=== PATIENT | female | born 1955 | race Caucasian/White ===

== ENCOUNTER 2019-08-17 15:30 | Outpatient (CLI) | payer MEDICARE, MEDICAID, SELFPAY ==
--- NOTE | 2019-08-17 16:07 | XR_ITS ---
WS: [id number] KNEE RIGHT TECHNIQUE: 4 views of the right knee CLINICAL INFORMATION: KNEE PAIN COMPARISON: None. FINDINGS: No evidence of acute fracture dislocation. Mild degenerative arthritis with hypertrophic changes na g the joint line. Hypertrophic patella. Soft tissue edema. Tiny joint effusion. XR/XR knee RT 4V [id number] IMPRESSION: 1. Mild degenerative arthritis. No acute fractures. 2. Soft tissue edema. Tiny suprapatellar effusion. 3. Hypertrophic patella.
== END 2019-08-17 15:31 | disposition home or self-care (01) ==
LOC: RADOUTREAD 15:39 → RADWPI 08-22 07:25
PROVIDERS: Family Provider Family Medicine; PCP Family Medicine; Visit Provider Nurse Practitioner Family
DX: M25.561 Pain in right knee (principal)
CPT/HCPCS: 73564

== ENCOUNTER → 2019-08-31 13:26 | Outpatient (BNVA) | payer MEDICARE, MEDICAID, SELFPAY | PROVIDERS: Family Provider Family Medicine; PCP Family Medicine; Visit Provider Dermatology | DX: D48.9 Neoplasm of uncertain behavior, unspecified (principal); L82.1 Other seborrheic keratosis; R58 Hemorrhage, not elsewhere classified; L85.3 Xerosis cutis; Z12.83 Encounter for screening for malignant neoplasm of skin | CPT/HCPCS: 11305; 11310; 88305; 99203 ==

== ENCOUNTER 2019-12-27 16:15 | Inpatient (IN) | payer MEDICARE, MEDICAID, SELFPAY ==
[2019-12-27 16:29] VITALS: BP 76/57; PULSE 97; RESP 18; TEMP 36.5; O2SAT 98; BMI 29.9
--- NOTE | 2019-12-27 16:46 | PC.NURSE ---
EKG done at 1645 and shown to ER doctor
--- NOTE | 2019-12-27 17:19 | W.ED.NAVMDI ---
HPI - Nausea/Vomiting/Diarrhea General: Chief complaint: Nausea/Vomiting/Diarrhea Stated complaint: LOW BP Time Seen by Provider: 12/27/19 17:08 History of Present Illness: HPI Narrative: This patient is a 64-year-old female who presents today with abdominal pain for about 2 weeks. She said every time she eats she gets pain in her lower abdomen. She said it happens consistently with each meal. She had not had any fever, vomiting or diarrhea until today. She has no fever today but developed some vomiting and loose stools. She went to her doctor, where she had already scheduled an appointment for the abdominal pain and was told that her blood pressure was too low. She was sent to the ER with concerns for dehydration. She has had a hysterectomy about 8 years ago and her gallbladder removed about 2 years ago. She has lupus which is only caused her arthritis types of problems. She said her sister and her niece both from lupus complications however. She has not had cough or shortness of breath. No chest pain. MD elicited complaint: nausea, vomiting, diarrhea and abdominal pain Pertinent past history: other (She has been losing weight but has been doing so intentionally since July.) Onset (ago): week(s) (2) Associated nausea: Yes Associated abdominal pain: Yes Location of pain: RLQ and LLQ Severity: moderate Quality: cramping Exacerbating factors: eating Context: history of abdominal surgery Associated symtoms: Reports nausea; Denies change in vision, chest pain, fatigue, headache(s) or malaise Review of Systems General: Reports: 10 or more systems reviewed and unremarkable except in HPI and below Const: Denies: fever(s), chills, fatigue or malaise Eyes: Denies: change in vision ENMT: Denies: odynophagia Card: Denies: chest pain or swelling of feet/ankles Resp: Denies: dyspnea, productive cough or non-productive cough GI: Reports: abdominal pain, nausea and vomiting : Denies: flank pain or difficulty voiding Musc: Denies: neck pain or back pain Skin/Breast: Denies: rash Neuro: Denies: headache(s), numbness in extremities or weakness in extremities Cornelius/Lymph: Denies: easy bruising or easy bleeding PFSH ED PFSH: Family History Other CAD (coronary artery disease) Diabetes Hypertension Stroke Denies family history of Cancer Social History Smoking and tobacco status: never smoked Alcohol intake: current Alcohol intake frequency: holidays/special occasions only History of recent travel: No Physical Exam Const: COMMON NORMALS: no acute distress, patient oriented x3, no limitations and alert GENERAL APPEARANCE: cooperative and comfortable HENMT: HEAD & SCALP: normal to inspection FACE & SINUS: normal facial exam Eye: GENERAL EYE: appearance normal, both eyes and all related structures Neck/C-Spine: COMMON NORMALS: supple, no meningeal signs and no JVD Chest: COMMONS NORMALS: normal inspection of the chest Resp: COMMON NORMALS: normal respiratory effort, No use of accessory muscles and clear to auscultation bilaterally AUSCULTATION: clear to auscultation bilaterally Cardio: COMMON NORMALS: no JVD, regular rate, regular rhythm and No murmurs present (Cardio) RATE: regular rate RHYTHM: regular rhythm GI: COMMON NORMALS: Normal to inspection, nondistended, normoactive bowel sounds present and Soft to palpation INSPECTION: Yes normal to inspection AUSCULTATION: Yes normoactive bowel sounds PALPATION: Yes Soft to palpation and Yes Tenderness to palpation present (GI) (Diffuse) Back/Pelvis: COMMON NORMALS: thoracic and lumbar spine normal to inspection Extremity: COMMON NORMALS: normal to inspection Neuro: COMMON NORMALS: patient oriented x3, moves all extremities, no focal motor deficits and no sensory deficits noted SENSORIUM/ORIENTATION: Yes alert MENINGEAL SIGNS: Yes no meningeal signs Psych: COMMON NORMALS: mental status grossly normal, cooperative and normal affect Skin: COMMON NORMALS: no rashes or lesions noted and turgor normal GENERAL SKIN EXAM: no rashes or lesions noted and turgor normal Course ED course: Patient presents with lower abdominal pain that is been there for about 2 weeks. It goes away in between meals but after meals she has significant symptoms. She had one episode of vomiting a little bit of diarrhea today but otherwise has been able to eat and drink normally. She came in with a significantly low blood pressure. She was found to have renal failure which appears to be chronic. She initially had told me that she did not have any problems from her lupus including no kidney problems but when I spoke with her further she said she had been told that she had some kidney issues and needed to follow-up with a marketing information manager. She was told a few months ago to stop taking any ibuprofen or medicines like that as they were hard on her kidneys. She does not know what any of the numbers were at that time. I cannot find any prior kidney function in our system here. Given her low blood pressure she will be admitted to hospitalist for hydration and further evaluation of her kidney function. CT was done due to her abdominal symptoms and showed some nonspecific colitis. Vital Signs: Vital signs: Vital Signs Temperature 97.9 F 12/28/19 03:54 Pulse Rate 81 12/28/19 03:54 Respiratory Rate 18 12/28/19 03:54 Blood Pressure 102/56 12/28/19 04:31 Pulse Oximetry 98 12/28/19 03:54 MDM - Nausea/Vomiting/Diarrhea Lab Data: Labs: Lab Results 12/27/19 12/27/19 12/27/19 Range/Units 16:43 17:16 18:02 WBC 7.6 (4.0-10.0) 10^3/ uL RBC 3.84 L (4.1-5.3) 10^6/u L Hgb 11.4 L (11.5-15.3) g/dL Hct 33.8 L (37.0-47.0) % MCV 88.0 (81-99) fL MCH 29.7 (28.0-34.0) pg MCHC 33.7 (30.0-36.0) g/dL RDW 12.2 (12.1-15.1) % Plt Count 276 (130-400) 10^3/c mm MPV 9.8 (7.4-10.4) fL Neut % (Auto) 77.7 % Lymph % (Auto) 12.4 % [place] % (Auto) 7.5 % Eos % (Auto) 1.6 % Baso % (Auto) 0.4 % Neut # (Auto) 5.92 (1.8-7.7) 10^3/u L Lymph # (Auto) 0.9 (0.8-4.8) 10^3/u L [place] # (Auto) 0.6 (0.2-0.9) 10^3/u L Eos # (Auto) 0.1 (0.0-0.8) 10^3/u L Baso # (Auto) 0.0 (0.0-0.1) 10^3/u L Nucleated RBC % (a uto) 0 % Nucleated RBCs # 0.0 /100WBC Sodium 135 L (136-145) mmol/L Potassium 4.4 (3.5-5.1) mmol/L Chloride 97 L (98-107) mmol/L Carbon Dioxide 24 (22-29) mmol/L Anion Gap 18.4 (5-19) BUN 48 H (8-23) mg/dL Creatinine 4.2 H (0.5-0.9) mg/dL GFR Calculation 10.7 L (90-130) mL/min Glucose 115 (65-115) mg/dL Calculated Osmolal ity 294 (285-295) mOsm/k g Calcium 9.7 (8.5-10.5) mg/dL Total Bilirubin 0.3 (0.15-1.2) mg/dL AST 39 H (0-32) U/L ALT 36 H (0-33) U/L Alkaline Phosphata se 87 (35-105) IU/L Total Protein 7.0 (6.6-8.7) g/dL Albumin 4.7 (3.5-5.2) g/dL Globulin 2.3 (1.3-4.6) g/dL Lipase 66 H (13-60) U/L Urine Color Yellow (Yellow) Urine Appearance Clear (CLEAR) Urine pH 5 (5-7) Ur Specific Gravit y 1.015 (1.005-1.030) Urine Protein Neg (Negative) Urine Glucose (UA) Norm (Normal) Urine Ketones Negative (Negative) Urine Blood Neg (Negative) Urine Nitrate Negative (Negative) Urine Bilirubin Neg (Negative) Urine Urobilinogen Norm (Negative) mg/dL Ur Leukocyte [place] ase Negative (Negative) U Random Total Pro tein mg/dL Ur Random Sodium mmol/L Urine Creatinine (28-217) mg/dL 12/27/19 Range/Units 18:02 WBC (4.0-10.0) 10^3/ uL RBC (4.1-5.3) 10^6/u L Hgb (11.5-15.3) g/dL Hct (37.0-47.0) % MCV (81-99) fL MCH (28.0-34.0) pg MCHC (30.0-36.0) g/dL RDW (12.1-15.1) % Plt Count (130-400) 10^3/c mm MPV (7.4-10.4) fL Neut % (Auto) % Lymph % (Auto) % [place] % (Auto) % Eos % (Auto) % Baso % (Auto) % Neut # (Auto) (1.8-7.7) 10^3/u L Lymph # (Auto) (0.8-4.8) 10^3/u L [place] # (Auto) (0.2-0.9) 10^3/u L Eos # (Auto) (0.0-0.8) 10^3/u L Baso # (Auto) (0.0-0.1) 10^3/u L Nucleated RBC % (a uto) % Nucleated RBCs # /100WBC Sodium (136-145) mmol/L Potassium (3.5-5.1) mmol/L Chloride (98-107) mmol/L Carbon Dioxide (22-29) mmol/L Anion Gap (5-19) BUN (8-23) mg/dL Creatinine (0.5-0.9) mg/dL GFR Calculation (90-130) mL/min Glucose (65-115) mg/dL Calculated Osmolal ity (285-295) mOsm/k g Calcium (8.5-10.5) mg/dL Total Bilirubin (0.15-1.2) mg/dL AST (0-32) U/L ALT (0-33) U/L Alkaline Phosphata se (35-105) IU/L Total Protein (6.6-8.7) g/dL Albumin (3.5-5.2) g/dL Globulin (1.3-4.6) g/dL Lipase (13-60) U/L Urine Color (Yellow) Urine Appearance (CLEAR) Urine pH (5-7) Ur Specific Gravit y (1.005-1.030) Urine Protein (Negative) Urine Glucose (UA) (Normal) Urine Ketones (Negative) Urine Blood (Negative) Urine Nitrate (Negative) Urine Bilirubin (Negative) Urine Urobilinogen (Negative) mg/dL Ur Leukocyte Oumou ase (Negative) U Random Total Pro tein 11 mg/dL Ur Random Sodium 40 mmol/L Urine Creatinine 71 (28-217) mg/dL Discharge Plan Discharge Admit Provider: Wyatt Cadet Discharge Date/Time: 12/27/19 20:58 Coding Level of Care Code ED Ice Cream Chef for Renag Fwd Exam Comprehensive
--- NOTE | 2019-12-27 17:20 | ECG_ITS ---
[facility] Test Date: 2019-12-27 Pat Name: Summer Sanchez Department: Room: Gender: Female Whipped Topping Mixer: : 1955 Requested By: Lidia Velarde Order Number: [id number] Belén MD: Emily Ramirez M.D. Measurements Intervals [place] Rate: 90 P: 43 WI: 174 QRS: 47 QRSD: 157 T: 83 QT: 414 QTc: 509 Interpretive Statements SINUS RHYTHM LEFT BUNDLE BRANCH BLOCK [120+ ms QRS DURATION, 80+ ms Q/S IN V1/V2, 85+ ms R IN I/aVL/V5/V6] Compared to ECG 07/23/2015 04:10:10 No significant changes Electronically Signed On 12-27-2019 18:56:30 SODA FLAKER by Emily Ramirez M.D. [email or web address] memorial hospitalRobotDough Softwareregency hospital [email or web address]/store/NU/[id number] f
[2019-12-27 17:29] LABS: Basophils % 0.4 %; Eosinophils # 0.1 10^3/uL (0.0-0.8); Eosinophils % 1.6 %; Hematocrit 33.8 % (37.0-47.0); Hemoglobin 11.4 g/dL (11.5-15.3); Lymphocytes # 0.9 10^3/uL (0.8-4.8); Lymphocytes % 12.4 %; Mean Corpuscular HGB Conc 33.7 g/dL (30.0-36.0); Mean Corpuscular Hemoglobin 29.7 pg (28.0-34.0); Mean Platelet Volume 9.8 fL (7.4-10.4); Monocytes # 0.6 10^3/uL (0.2-0.9); Monocytes % 7.5 %; Neutrophils # 5.92 10^3/uL (1.8-7.7); Neutrophils % 77.7 %; Nucleated Red Blood Cells % 0 %; Platelet Count 276 10^3/cmm (130-400); Red Blood Count 3.84 10^6/uL (4.1-5.3); Red Cell Distribution Width 12.2 % (12.1-15.1); White Blood Count 7.6 10^3/uL (4.0-10.0)
[2019-12-27 17:51] LABS: Alanine Aminotransferase 36 U/L (0-33); Albumin Level 4.7 g/dL (3.5-5.2); Alkaline Phosphatase 87 IU/L (35-105); Anion Gap 18.4 (5-19); Aspartate Amino Transferase 39 U/L (0-32); Blood Urea Nitrogen 48 mg/dL (8-23); Calcium 9.7 mg/dL (8.5-10.5); Carbon Dioxide 24 mmol/L (22-29); Chloride 97 mmol/L (98-107); Globulin 2.3 g/dL (1.3-4.6); Glomerular Filtration Rate 10.7 mL/min (90-130); Glucose 115 mg/dL (65-115); Lipase 66 U/L (13-60); Osmolality Calculated 294 mOsm/kg (285-295); Potassium 4.4 mmol/L (3.5-5.1); Sodium 135 mmol/L (136-145); Total Bilirubin 0.3 mg/dL (0.15-1.2)
[2019-12-27] MEDS: sodium chloride 0.9% 1,000 ML 999 ML IV (17:56)
[2019-12-27] MEDS: ondansetron 2 mg/ML SDV 2 mL 4 MG IVP (17:56)
--- NOTE | 2019-12-27 18:04 | CTR_ITS ---
PROCEDURE INFORMATION: Exam: CT Abdomen And Pelvis Without Contrast Exam date and time: 12/27/2019 6:34 PM Age: 64 years old Clinical indication: Nausea and vomiting and other: Diarrhea; Abdominal pain; Prior surgery; Surgery type: Gb, hyst TECHNIQUE: Imaging protocol: Computed tomography of the abdomen and pelvis without contrast. Radiation optimization: All CT scans at this facility use at least one of these dose optimization techniques: automated exposure control; mA and/or kV adjustment per patient size (includes targeted exams where dose is matched to clinical indication); or iterative reconstruction. COMPARISON: CT abdomen w con* [id number] 06/02/2018 9:46 AM RADIATION DOSE METRICS: Total DLP (mGy-cm): 780.6 FINDINGS: Lungs: 3 mm calcified granuloma right lung base. Mediastinal space: There is a small hiatal hernia present. Liver: The liver is unremarkable in appearance. Gallbladder and bile ducts: The gallbladder is surgically absent. No biliary dilatation. Pancreas: The pancreas is normal in appearance. Spleen: Unremarkable. No splenomegaly. Adrenal glands: Unremarkable. No mass. Kidneys and ureters: Unremarkable. No renal calculi. No hydronephrosis. Stomach and bowel: No acute gastric abnormality demonstrated. The small bowel is unremarkable as demonstrated. Mild mural thickening of the distal transverse, descending, and rectosigmoid colon. Appendix: No evidence of appendicitis. Normal appendix. Intraperitoneal space: No pneumoperitoneum. No significant fluid collection. Vasculature: The aorta is atherosclerotic. No aortic aneurysm. Lymph nodes: No pathologically enlarged lymph nodes are demonstrated. Urinary bladder: The urinary bladder is unremarkable in appearance. Reproductive: The uterus is not visualized, consistent with hysterectomy. Bones/joints: Degenerative spine changes are noted. No acute osseous abnormality. Soft tissues: Unremarkable. CT/CT abdomen pelvis wo con [id number] IMPRESSION: Mild mural thickening of the distal transverse, descending, and rectosigmoid colon. Findings are consistent with mild nonspecific colitis. Radiation Dose CTDIVOL = (mGy): DLP = 780.6 (mGy-cm)
[2019-12-27 18:12] VITALS: BP 89/62; PULSE 89; RESP 18; O2SAT 100
[2019-12-27 18:32] LABS: Add Urine Microscopic? NO
--- NOTE | 2019-12-27 18:40 | P.HP_ITS ---
Providers/Chief Complaint Admitting Physician: Wyatt Cadet Chief Complaint: LOW BP History of Present Illness Summer Sanchez is a 64 year old female WITH pmh of SLE,Fibromyalgis,peripheral neuropathy,came in with c/o pain while passing urine as well as increased frequency started 2 days back, she deny any other complain, though the ER notes say that she was also complaining of nausea, vomitting and diarrhea along with 2weeks h/o lower abdominal pain.She denied any such complain to me ,she is complaining of chronic constipation relieved with laxatives.She deny any fever, cough, chest pain, sob,sick contact. Upon arrival in the ER : CMP : BUN/SCR : 48/4.2 Baseline SCR is unkown , Lipase: 66 C.T abdomen and pelvis without contrast: Mild mural thickening of the distal transverse, descending, and rectosigmoid colon. Findings are consistent with mild nonspecific colitis. EKG : SINUS RHYTHM with LEFT BUNDLE BRANCH BLOCK. U/A is clean She was hypotensive upon arrival in the ER.B/P : 76/57,She responded to I.V Fluids .On floor B/P: 111/74 Review of Systems General: Reports: 10 or more systems reviewed and unremarkable except in HPI and below Const: Denies: fever(s), chills, body aches, change in appetite or diaphoresis Card: Denies: palpitations, edema, swelling of feet/ankles, dyspnea on exertion, orthopnea or leg pain with exertion Resp: Denies: dyspnea, productive cough, wheezing or pain on inspiration : Denies: flank pain Musc: Denies: back pain, extremity pain or extremity swelling Neuro: Denies: headache(s), difficulty walking or confusion Medications/Allergies Home Medications Medication Instructions Recorded Confirmed Last Taken Type diclofenac sodium 1 % topical gel 2 gm TOPICAL QID PRN 08/31/19 12/27/19 Unknown History hydrochlorothiazide 12.5 mg tablet 12.5 mg PO DAILY 08/31/19 12/27/19 12/27/19 History hydroxychloroquine 200 mg tablet 200 mg PO BID 08/31/19 12/27/19 12/27/19 History lisinopril 10 mg tablet 10 mg PO DAILY 08/31/19 12/27/19 12/27/19 History pregabalin 75 mg capsule 75 mg PO DAILY 08/31/19 12/27/19 12/27/19 History bupropion HCl [Wellbutrin SR] 150 mg PO BID 12/27/19 12/27/19 12/27/19 History Allergies Allergy/AdvReac Type Severity Reaction Status Date / Time Penicillins Allergy trouble Verified 12/27/19 16:32 breathing and itching Sulfa (Sulfonamide Allergy hives Verified 12/27/19 16:32 Antibiotics) PFSH Acute PFSH: Family History Other CAD (coronary artery disease) Diabetes Hypertension Stroke Denies family history of Cancer Social History Smoking and tobacco status: never smoked Alcohol intake: current Alcohol intake frequency: holidays/special occasions only History of recent travel: No Vitals/I&O/Wt Last Vital Signs Temp 97.7 F 12/27/19 16:29 Pulse 89 12/27/19 18:12 Resp 18 12/27/19 18:12 BP 89/62 12/27/19 18:12 Pulse Ox 100 12/27/19 18:12 Weight last 48 hrs Weight 74.389 kg Physical Exam Const: COMMON NORMALS: patient oriented x3 HENMT: COMMON NORMALS: normocephalic, atraumatic, hearing grossly normal bilaterally and external ears normal HEAD & SCALP: normocephalic and atraumatic EXTERNAL EAR: Yes external ears normal Eye: COMMON NORMALS: no scleral icterus GENERAL EYE: appearance normal, both eyes and all related structures Chest: COMMONS NORMALS: normal inspection of the chest and normal palpation of entire chest wall CHEST: Yes Symmetrical chest wall rise Resp: COMMON NORMALS: normal respiratory effort, No retractions, No use of accessory muscles and clear to auscultation bilaterally EFFORT & INSPECTION: Yes symmetric chest movement AUSCULTATION: clear to auscultation bilaterally Cardio: COMMON NORMALS: regular rate, regular rhythm, S1 normal heart sound present, S2 normal heart sound present, No gallops present (Cardio), No murmurs present (Cardio), No rub (Cardio) and Peripheral pulses 2+ throughout RATE: regular rate RHYTHM: regular rhythm HEART SOUNDS: S1 normal heart sound present and S2 normal heart sound present PERIPHERAL PULSES: Peripheral pulses 2+ throughout GI: COMMON NORMALS: Normal to inspection, nondistended, normoactive bowel sounds present, Soft to palpation, non-tender, No hepatosplenomegaly present and no masses AUSCULTATION: Yes normoactive bowel sounds PALPATION: Yes Soft to palpation and Yes No hepatosplenomegaly present RECTAL EXAM: deferred : COMMON NORMALS: Yes no CVA tenderness BLADDER/KIDNEY EXAM: Yes no CVA tenderness Back/Pelvis: COMMON NORMALS: no CVA tenderness Extremity: COMMON NORMALS: no clubbing, cyanosis or edema and no pedal edema Neuro: COMMON NORMALS: patient oriented x3 Data : 12/27/19 16:43 12/27/19 17:16 A&P Assessment and plan (1) STEFF (acute kidney injury): STEFF V/S STEFF ON CKD likely 2/2 to poor oral intake .Possible ATN given Hypotensive upon arrival BUN/SCR : 48/4.2 Baseline SCR is unkown Less likely lupus nephritis Patient do not give any h/o NSAID Use Random Urine:Na/Crea/Protein for Fena as well as UPCR Monitor BMP Real U/S I.V Hydration I/O Charting Avoid nephrotoxic meds Consider Renal Consult Status: Acute (2) Systemic lupus erythematosus arthritis: Currently on HCQ 200 MG Q12 H DAILY. No concern for flare Will avoid doing DsDNA Status: Acute (3) Hypotension: She was hypotensive upon arrival in the ER.B/P : 76/57,Likley 2/2 to poor oral intake She responded to I.V Fluids .On floor B/P: 111/74 Status: Acute (4) Fibromyalgia: Pain management Status: Acute Additional A&P Information Code Status:Full Code DVT PPX: Heparin 5000 u q12 h daily Attestations Medical Necessity Statement*: Patient needs to be in hospital for management of STEFF and severe dehydration.More then 2 night stay is expected Coding Level of Care Code Acute Pathology Laboratory Technologist for Karis Gomez Diagnoses STEFF (acute kidney injury) N17.9 Systemic lupus erythematosus arthritis M32.9 Hypotension I95.9 Fibromyalgia M79.7
[2019-12-27 18:58] LABS: Lactic Sepsis W/Reflex 0.8 mmol/L (0.5-2.2)
[2019-12-27 19:04] LABS: Bilirubin Urine Neg (Negative); Blood Urine Neg (Negative); Glucose Urine UA Norm (Normal); Ketones Urine Negative (Negative); Leukocyte Esterase Urine Negative (Negative); Nitrate Urine Negative (Negative); Protein Urine Neg (Negative); Specific Gravity, Urine 1.015 (1.005-1.030); Urine Appearance Clear (CLEAR); Urine Color Yellow (Yellow); Urobilinogen Urine Norm (Negative); pH Urine 5 (5-7)
[2019-12-27 19:19] VITALS: BP 111/74; PULSE 82; RESP 21; O2SAT 100
[2019-12-27] MEDS: heparin 5,000 unit/mL INJ 1 mL 5000 UNIT SUBCUT (19:26)
[2019-12-27] MEDS: sodium chloride 0.9% 1,000 ML 125 ML IV (20:53)
[2019-12-27 20:54] VITALS: BP 146/69; PULSE 82; O2SAT 100
[2019-12-27 20:57] VITALS: BP 135/65; PULSE 91; RESP 18; TEMP 36.6; O2SAT 95
--- NOTE | 2019-12-27 21:13 | PC.NURSE ---
ADMIT NOTE Pt received to floor via wheelchair from ER at 2100. Alert and oriented. Says is feeling better now that BP is up. Reports a 2 week history of pain across lower abdomen every time she eats. Has also had some nausea and vomited X2 today. Denies difficulty or pain with urination. Went to bathroom on arrival to floor and urinated 500ml. Instructed on need to monitor I&O. IV patent and infusing at 125ml/hr rate. Rating pain at a 6 in lower abdomen and would like pain med for it. Has po Dilaudid. VS check done and RN to complete admission assessment
[2019-12-27 21:28] VITALS: RESP 18
[2019-12-27] MEDS: pregabalin 75 mg Capsule PO (21:33)
[2019-12-27] MEDS: buPROPion SR (12 HR) 150 mg Tablet PO (21:34)
[2019-12-27] MEDS: hydroxychloroquine 200 mg Tablet PO (21:43)
[2019-12-28] VITALS (11 sets, daily range): BP systolic 87–102; BP diastolic 52–63; PULSE 61–89; RESP 16–20; TEMP 36.6–36.8; O2SAT 93–98
[2019-12-28 00:51] LABS: Urine Creatinine 71 mg/dL (28-217); Urine Protein Random 11 mg/dL; Urine Random Sodium 40 mmol/L
[2019-12-28] MEDS: sodium chloride 0.9% 1,000 ML 125 ML IV ×3 (04:29→23:51)
--- NOTE | 2019-12-28 05:17 | PC.NURSE ---
SHIFT SUMMARY Has done well since admission. Very pleasant. Medicated X2 with po Dilaudid for c/o lower abd pain and headache. Good relief obtained. IV infusing at 125ml/hr rate. Voiding well without c/o. Has been awake much of the night. Plays games on tablet.
[2019-12-28 05:24] LABS: Basophils % 0.4 %; Eosinophils # 0.1 10^3/uL (0.0-0.8); Eosinophils % 1.8 %; Hematocrit 26.5 % (37.0-47.0); Hemoglobin 8.8 g/dL (11.5-15.3); Lymphocytes % 17.5 %; Mean Corpuscular HGB Conc 33.2 g/dL (30.0-36.0); Mean Corpuscular Hemoglobin 29.5 pg (28.0-34.0); Mean Corpuscular Volume 88.9 fL (81-99); Mean Platelet Volume 9.5 fL (7.4-10.4); Monocytes # 0.5 10^3/uL (0.2-0.9); Monocytes % 8.6 %; Neutrophils # 4.05 10^3/uL (1.8-7.7); Neutrophils % 71.3 %; Nucleated Red Blood Cells % 0 %; Platelet Count 149 10^3/cmm (130-400); Red Blood Count 2.98 10^6/uL (4.1-5.3); Red Cell Distribution Width 12.3 % (12.1-15.1); White Blood Count 5.7 10^3/uL (4.0-10.0)
[2019-12-28 05:56] LABS: Alanine Aminotransferase 28 U/L (0-33); Albumin Level 3.6 g/dL (3.5-5.2); Alkaline Phosphatase 63 IU/L (35-105); Anion Gap 13.4 (5-19); Aspartate Amino Transferase 26 U/L (0-32); Blood Urea Nitrogen 34 mg/dL (8-23); Calcium 8.5 mg/dL (8.5-10.5); Carbon Dioxide 23 mmol/L (22-29); Chloride 106 mmol/L (98-107); Chol HDL Ratio 2.43 mg/dL (0.0-4.40); Cholesterol 129 mg/dL (0-200); Globulin 1.9 g/dL (1.3-4.6); Glomerular Filtration Rate 21.5 mL/min (90-130); Glucose 107 mg/dL (65-115); HDL Cholesterol 53 mg/dL (60-100); LDL Cholesterol Calculated 59 mg/dL (50-129); LDL HDL Ratio 1.11 RATIO (0.00-3.22); Magnesium 1.9 mg/dL (1.7-2.3); NT Pro B Type Natriuretic Pept 61 pg/mL (0-125); Osmolality Calculated 294 mOsm/kg (285-295); Potassium 4.4 mmol/L (3.5-5.1); Sodium 138 mmol/L (136-145); Thyroid Stimulating Hormone 2.55 uIU/mL (0.27-4.20); Total Bilirubin 0.2 mg/dL (0.15-1.2); Total Protein 5.5 g/dL (6.6-8.7); Triglycerides 85 mg/dL (0-150)
[2019-12-28] MEDS: heparin 5,000 unit/mL INJ 1 mL 5000 UNIT SUBCUT ×2 (06:21→19:38)
[2019-12-28 06:33] LABS: Estmated Average Glucose 88; Hemoglobin A1C 4.7 % (4.0-6.0)
[2019-12-28] MEDS: hydroxychloroquine 200 mg Tablet PO ×2 (07:42→19:38)
[2019-12-28] MEDS: buPROPion SR (12 HR) 150 mg Tablet PO ×2 (07:42→19:38)
[2019-12-28] MEDS: pregabalin 75 mg Capsule PO (07:42)
--- NOTE | 2019-12-28 07:49 | PC.NURSE ---
I reported the low bp to the nurse. 82/51 took it again and got 89/59
--- NOTE | 2019-12-28 10:37 | PC.CHAP ---
Pastoral Care Encounter/Spiritual Assessment Type of Contact [] Declined iron installer visit [] Patient/Family/Request visit [] Outpatient visit [] Follow-up visit [] Physician referral [] Code/Alert [x] Routine visit [] Staff referral [] Actively dying [] Patient sleeping [] Family support [] [] Out of room [] Palliative care [] [x] Receiving care in room [] Pre-surgical visit [] Trauma [] Long length of stay [] ICU visit [] Other: Relational/Emotional Strength [x] Patient feels connected with others/family/visitors/staff [] Distress [] Loneliness/isolation [] Abandonment Spirituality of Patient [x] Person of Anitha [] Attends Zoroastrian of their Anitha [x] Believes in Prayer [] Reads Bible or Yazdanism materials [] There are Spiritual issues to be addressed Biodiesel Engine Specialist Interventions [x] Prayer [x] Active listening [x] Non-anxious presence [x] Spiritual/emotional support [] Crisis/trauma care [x] Spiritual counseling [] Bereavement support [] Provided bereavement packet [] Provided Bible/devotional materials [] Provided toy/stuffed animal, coloring book to patient or family member [] Provided Communion [] Anointing/[place] [] Salvation [x] Completed spiritual assessment [] Other: Impact on Illness or Injury [] Angry [] Fearful [x] Anxious [] Often cries [] Exhaustion [] Unable to work [] Unable to attend taoist [] Unable to walk/stand [] Unable to read [] Unable to drive [] Unable to eat/drink [] Unable to sleep [] Unable to be with family [] Patient intubated [] Other: Summary Had tests doesn't the results yet, she feeling better, has good attitude, Time spent with patient 10 mins
--- NOTE | 2019-12-28 11:59 | USCV_ITS ---
Summer Sanchez Age: 64 Gender: F : 1955 Exam Date: 12/28/2019 12:22 Ordering Phys: Faina Aaron MD Technologist: Marshall Lopez Exam Location: [facility] [place] Indication: BP: 134 / 74 HR: 76 Rhythm: Sinus Technical Quality: Fair MEASUREMENTS (Male / Female) Normal Values 2D ECHO LV Diastolic Diameter PLAX 3.9 cm 4.2 - 5.9 / 3.9 - 5.3 cm LV Systolic Diameter PLAX 2.5 cm IVS Diastolic Thickness 0.9 cm 0.6 - 1.0 / 0.6 - 0.9 cm IVS Systolic Thickness 1.3 cm LVPW Diastolic Thickness 1.0 cm 0.6 - 1.0 / 0.6 - 0.9 cm LVPW Systolic Thickness 1.2 cm LVOT Diameter 2.0 cm LV Ejection Fraction 2D Teich 65.4 % LV Ejection Fraction MOD 2C 65.7 % LV Ejection Fraction 2C AL 65.2 % LA Diameter 3.3 cm LA Width 3.2 cm LA Height 4.6 cm RA Width 2.9 cm RA Height 4.1 cm Aorta at Sinotubular Diameter 2.4 cm M-MODE LV Diastolic Diameter MM 4.6 cm 4.2 - 5.9 / 3.9 - 5.3 cm LV Systolic Diameter MM 3.1 cm LV Ejection Fraction MM Teich 63.0 % IVS Diastolic Thickness MM 0.9 cm 0.6 - 1.0 / 0.6 - 0.9 cm IVS Systolic Thickness MM 1.0 cm LVPW Diastolic Thickness MM 1.1 cm 0.6 - 1.0 / 0.6 - 0.9 cm LVPW Systolic Thickness MM 1.6 cm RV Diastolic Diameter MM 1.7 cm Aortic Annulus Diameter 3.6 cm LA Ao Ratio MM 1.0 MV E Point Septal Separation 0.9 cm DOPPLER AV Peak Velocity 130.0 cm/s LVOT Peak Velocity 101.0 cm/s AV Area Cont Eq vti 3.1 cm squared AV Area Cont Eq pk 2.5 cm squared MV Area PHT 5.0 cm squared Mitral E to A Ratio 1.1 MV E' Velocity 45.0 cm/s Mitral E to MV E' Ratio 7.3 Mitral E to LV E' Lateral Ratio 7.3 Mitral E to LV E' Septal Ratio 7.5 TR Peak Velocity 149.0 cm/s TR Peak Gradient 8.9 mmHg TV Peak E Velocity 124.0 cm/s Right Atrial Pressure 3.0 mmHg Pulmonary Artery Systolic Pressu 11.9 mmHg PV Peak Velocity 155.0 cm/s FINDINGS Left Ventricle Normal left ventricular cavity size. Normal left ventricular systolic function. No regional wall motion abnormalities. Left ventricular ejection fraction is estimated at 63 %. Grade I/IV diastolic dysfunction (abnormal relaxation filling pattern), normal to mildly elevated filling pressures. Right Ventricle The right ventricle is normal in size and function. Right Atrium The right atrium is normal in size. Left Atrium The left atrium is normal in size. Mitral Valve Moderately thickened mitral valve. No mitral valve stenosis. No mitral valve regurgitation. Aortic Valve Structurally normal aortic valve without significant sclerosis or stenosis. There is no aortic regurgitation. Tricuspid Valve Structurally normal tricuspid valve without significant stenosis or regurgitation. Pulmonary artery systolic pressure is normal. Pulmonic Valve Structurally normal pulmonic valve without significant stenosis. There is no pulmonic regurgitation. Pericardium Normal pericardium without effusion. Aorta Normal ascending aorta dimension. CONCLUSIONS 1-Normal left ventricular cavity size. Normal left ventricular systolic function. No regional wall motion abnormalities. Left ventricular ejection fraction is estimated at 63 %. Grade I/IV diastolic dysfunction (abnormal relaxation filling pattern), normal to mildly elevated filling pressures. 2-There is no pericardial effusion. 3-No significant valve abnormalities. 4-Pulmonary artery systolic pressure is within normal limits. 5-Right atrial pressure is around 5 mm of mercury. 6-There are no prior echocardiogram studies to compare. Jazzy Zhao MD (Electronically Signed) Final Date: 28 December 2019 19:54 S
[2019-12-28 12:22] LABS: Troponin T (5th) Once 12 ng/L (0-10)
--- NOTE | 2019-12-28 16:45 | PM.PN ---
Subjective Subjective: Interval history: Creatinine improving today to 2.3. Urine output not accurately charted since this morning. Hemoglobin drifting down to 8.8, may be dilutional. Patient reporting some headache today, however states that this is chronic for her not unusual. This is located mostly in the frontal area. No associated neuro deficits. No episodes of diarrhea or vomiting. Abdominal pain improving. Blood pressure continues to be borderline with systolic between 89-94% . Medications: Reviewed: Yes Vitals/I&O/Wt Last Vital Signs Temp 97.9 F 12/28/19 15:02 Pulse 82 12/28/19 15:02 Resp 16 12/28/19 15:02 BP 94/59 12/28/19 15:02 Pulse Ox 97 12/28/19 15:02 12/28/19 12/28/19 12/28/19 06:59 14:59 22:59 Intake Total 950 / 950 1575 / 1575 Output Total 300 / 800 Balance 650 / 150 1575 / 1575 Weight last 48 hrs Weight 79.243 kg Weight 79.197 kg Weight 74.389 kg Physical Exam Narrative: EXAM NARRATIVE: GEN: Awake, alert and oriented, no acute distress CVS: S1S2 N RS: CTA B/L Abd: Soft, nt/nd , bs+ ROLL CLAMP OPERATOR: no focal neuro deficits EXT: no LE edema Data : 12/28/19 04:44 12/28/19 04:44 A&P Assessment and plan (1) JAMES (acute kidney injury): JAMES V/S JAMES ON CKD Currently creatinine is improving from 4.2-2.3 today Output not accurately charted today, encouraged to urinate exclusively in the hat so we can measure accurately Holding Lisinorpil and HCTZ, these will be discontinued on discharge Real U/S with Somewhat small kidneys with irregular contour and abundant sinus fibrolipomatosis. On CT abdomen, No renal calculi. No hydronephrosis. Continue I.V Hydration, James likely related to ATN from hypotension vs volume loss, though patient reports only one episode of diarrhea, which has now resolved Status: Acute (2) Systemic lupus erythematosus arthritis: Currently on HCQ 200 MG Q12 H DAILY. Continue same for now Status: Acute (3) Hypotension: She was hypotensive upon arrival in the ER.B/P : 76/57, unclear etiology, may be volume loss from diarrhea which has now resolved vs antihypertensive drugs, Pateint reports that this has been an ongoing problem now for the last 3 months or so will hold all antihypertensives Today also reports 3 months of intermittent chest pain and GOLDSMITH with climbing stairs. Last stress test 7 years ago, WNL. Check echocardiocardiogram to estimate systolic and diastolic function given persisting hypotension and above history, based on results will likely evaluate with stress test. Baseline troponin added on to am labs at 12 EKG upon admission with LBBB, appears unchanged since 2016 Status: Acute (4) Fibromyalgia: Pain management Status: Acute Additional A&P Information Code Status:Full Code DVT PPX: Heparin 5000 u q12 h daily Attestations Medical Necessity Statement*: stress test in am, echo given persisting hypotension, close monitoring of kidney function and urine output Coding Level of Care Code Acute Strap Making Machine Operator for Karis Gomez Diagnoses JAMES (acute kidney injury) N17.9 Systemic lupus erythematosus arthritis M32.9 Hypotension I95.9 Fibromyalgia M79.7
--- NOTE | 2019-12-28 19:12 | US_ITS ---
WS: [id number] RENAL ULTRASOUND REASON FOR EXAM: STEFF TECHNIQUE: Grayscale and Doppler ultrasound examination of the kidneys. FINDINGS: Right kidney: Right kidney measures 9.03 x 3.18 x 4.03 cm. Right renal cortex is moderately irregular in outline. 9 mm of cortical thickness. Abundant renal sinus fibrolipomatosis. No mass, calculus, or hydronephrosis. Left kidney: Left kidney measures 9.38 x 4.25 x 4.09 cm. Left renal cortex is moderately irregular in outline. 10 mm of cortical thickness. Abundant renal sinus fibrolipomatosis. No mass, calculus, or h ydronephrosis. The distended urinary bladder demonstrates no significant abnormality. US/US renal BI* [id number] IMPRESSION: Somewhat small kidneys with irregular contour and abundant sinus fibrolipomatos is.
[2019-12-29] VITALS (10 sets, daily range): BP systolic 97–121; BP diastolic 60–79; PULSE 76–95; RESP 13–16; TEMP 36.6–37.1; O2SAT 95–99
[2019-12-29] MEDS: ondansetron 2 mg/ML SDV 2 mL 4 MG IVP ×3 (04:40→13:07)
[2019-12-29 05:47] LABS: Alanine Aminotransferase 24 U/L (0-33); Albumin Level 3.5 g/dL (3.5-5.2); Alkaline Phosphatase 63 IU/L (35-105); Anion Gap 12.4 (5-19); Aspartate Amino Transferase 19 U/L (0-32); Blood Urea Nitrogen 19 mg/dL (8-23); Calcium 8.8 mg/dL (8.5-10.5); Carbon Dioxide 23 mmol/L (22-29); Chloride 107 mmol/L (98-107); Globulin 1.9 g/dL (1.3-4.6); Glomerular Filtration Rate 38.1 mL/min (90-130); Glucose 103 mg/dL (65-115); Magnesium 1.5 mg/dL (1.7-2.3); Osmolality Calculated 289 mOsm/kg (285-295); Phosphorus 3.7 mg/dL (2.5-4.5); Potassium 4.4 mmol/L (3.5-5.1); Sodium 138 mmol/L (136-145); Total Bilirubin 0.2 mg/dL (0.15-1.2); Total Protein 5.4 g/dL (6.6-8.7)
--- NOTE | 2019-12-29 06:00 | ECG_ITS ---
[facility] Test Date: 2019-12-29 Pat Name: Summer Sanchez Department: Room: 252 Gender: Female Paste Mixer: : 1955 Requested By: Faina Aaron Order Number: [id number] Belén MD: Lalo Eli M.D. Interpretive Statements NAME OF STUDY: LEXISCAN SESTAMIBI STRESS TEST INDICATION: [Chest Pain; Dyspnea, ] Procedure: At the baseline, the blood pressure was 120/66 mmHg, heart rate of 79 bpm. The electrocardiogram showed normal sinus rhythm with left bundle branch block. The Lexiscan was infused over a period of 20 seconds. A total of 0.4 mg of Lexiscan was infused. The stress phase was continued for a total of 5 minutes. Heart rate at the end of stress phase was 95 bpm, with blood pressure 110/55 mmHg. The EKG at the peak infusion revealed sinus rhythm with no significant ST T wave changes. Sestamibi was injected 20 seconds after the Lexiscan was infused. Blood pressure at the end of recovery phase was 112/60 mmHg, with a heart rate of 94 bpm. Conclusion: 1. Normal EKG response to Lexiscan infusion. 2. No Lexiscan induced chest pain or cardiac arrhythmia. 3. Normal blood pressure and heart rate response. 4. Sestamibi/sestamibi perfusion scan pending; see separate report. Electronically Signed On 01-01-2020 9:38:17 HOT DIP PLATING SUPERVISOR by Lalo Eli M.D. [email or web address]
[2019-12-29 07:48] LABS: Hematocrit 24.7 % (37.0-47.0)
[2019-12-29 08:04] LABS: Retic Production Index 0.31
[2019-12-29] MEDS: pregabalin 75 mg Capsule PO (10:11)
[2019-12-29] MEDS: buPROPion SR (12 HR) 150 mg Tablet PO ×2 (10:11→18:10)
[2019-12-29] MEDS: hydroxychloroquine 200 mg Tablet PO ×2 (10:12→18:10)
[2019-12-29] MEDS: heparin 5,000 unit/mL INJ 1 mL 5000 UNIT SUBCUT ×2 (10:13→18:09)
[2019-12-29] MEDS: sodium chloride 0.9% 1,000 ML 125 ML IV (11:30)
[2019-12-29 11:52] LABS: Basophils % 0.2 %; Eosinophils # 0.1 10^3/uL (0.0-0.8); Eosinophils % 1.7 %; Hematocrit 24.6 % (37.0-47.0); Hemoglobin 7.9 g/dL (11.5-15.3); Lymphocytes # 0.7 10^3/uL (0.8-4.8); Lymphocytes % 16.5 %; Mean Corpuscular HGB Conc 32.1 g/dL (30.0-36.0); Mean Corpuscular Hemoglobin 29.5 pg (28.0-34.0); Mean Corpuscular Volume 91.8 fL (81-99); Mean Platelet Volume 10.2 fL (7.4-10.4); Monocytes # 0.4 10^3/uL (0.2-0.9); Neutrophils # 2.94 10^3/uL (1.8-7.7); Neutrophils % 71.4 %; Nucleated Red Blood Cells % 0 %; Platelet Count 116 10^3/cmm (130-400); Red Blood Count 2.68 10^6/uL (4.1-5.3); Red Cell Distribution Width 12.3 % (12.1-15.1); White Blood Count 4.1 10^3/uL (4.0-10.0)
[2019-12-29] MEDS: regadenoson 0.4 Mg/5 ml Syringe IVP (12:38)
--- NOTE | 2019-12-29 15:47 | PM.PN ---
Subjective Subjective: Interval history: Underwent stress test today , awaiting results. C/o intractable vomiting. Headche persisting Medications: Reviewed: Yes Vitals/I&O/Wt Last Vital Signs Temp 98.2 F 12/29/19 15:39 Pulse 81 12/29/19 15:39 Resp 16 12/29/19 15:39 BP 116/70 12/29/19 15:39 Pulse Ox 99 12/29/19 15:39 12/29/19 12/29/19 12/29/19 06:59 14:59 22:59 Intake Total 150 / 3045 1000 / 1000 Output Total 900 / 1800 1200 / 1200 Balance -750 / 1245 -200 / -200 Weight last 48 hrs Weight 80.371 kg Weight 79.243 kg Weight 79.197 kg Weight 74.389 kg Physical Exam Narrative: EXAM NARRATIVE: GEN: Awake, alert and oriented, no acute distress CVS: S1S2 N RS: CTA B/L Abd: Soft, nt/nd , bs+ AQUATIC FACILITY MANAGER: no focal neuro deficits EXT: no LE edema Data : 12/29/19 04:44 12/29/19 04:44 A&P Assessment and plan (1) AJMES (acute kidney injury): JAMES V/S JAMES ON CKD cr improving to 1.4. urine output ~3L Holding Lisinorpil and HCTZ, these will be discontinued on discharge Real U/S with Somewhat small kidneys with irregular contour and abundant sinus fibrolipomatosis. On CT abdomen, No renal calculi. No hydronephrosis. Continue I.V Hydration, James likely related to ATN from hypotension vs volume loss, though patient reports only one episode of diarrhea, which has now resolved . Multiple episodes of vomiting today Status: Acute (2) Systemic lupus erythematosus arthritis: Currently on HCQ 200 MG Q12 H DAILY. Continue same for now Status: Acute (3) Hypotension: She was hypotensive upon arrival in the ER.B/P : 76/57, unclear etiology, may be volume loss from diarrhea which has now resolved vs antihypertensive drugs, now much improve dtoday with adjusting hydrocodone dosing additionally Pateint reports that this has been an ongoing problem now for the last 3 months or so will hold all antihypertensives Reported 3 months of intermittent chest pain and GOLDSMITH with climbing stairs. Last stress test 7 years ago, WNL. Stress test perfromed this morning as symptoms c/f unstable angina, pending results Echocardiogram with normal systolic and diatsolic function. EKG upon admission with LBBB, appears unchanged since 2016 Status: Acute (4) Fibromyalgia: Pain management Status: Acute (5) Headache: Headache worsened today, now also with multiple episodes of vomiting today, check CT head to evaluate for SAH Status: Acute Qualifiers: Intractability: intractable Additional A&P Information Code Status:Full Code DVT PPX: Heparin 5000 u q12 h daily Attestations Medical Necessity Statement*: pending stress test results, intractable headache and nausea Coding Level of Care Code Acute Photographic Reproduction Technician for g Fwd Diagnoses JAMES (acute kidney injury) N17.9 Systemic lupus erythematosus arthritis M32.9 Hypotension I95.9 Fibromyalgia M79.7 Headache R51.9 Intractability: intractable
--- NOTE | 2019-12-29 17:03 | NMCV_ITS ---
NM shonna perf SPECT r/s* [id number] Summer Sanchez Age: 64 Gender: F : 1955 Exam Date: 12/29/2019 11:50 Ordering Phys: Faina Aaron MD Technologist: RUBÉN Blunt Exam Location: [facility] [place] Indications: LOW BP STRESS TEST [facility] IMAGE PROTOCOL Rest/Stress 1 Lexiscan Day Radiopharmaceutical Dose (mCi) Administration Site Administered by Rest: Tc-99m 10.8 IV RUBÉN Blunt Sestamibi Stress:Tc-99m 32.1 IV Lupe Murcia, RUBÉN Sestamibi Rest: 29-Dec-2019 60 Discovery 630 Stress: 29-Dec-2019 30 Discovery 630 0.4mg Lexiscan. Supine position only as patient was unable to lay prone. SPECT RESULTS Technical Quality: Excellent Raw Data Analysis: Normal Image Corrections: No attenuation or motion correction applied Summed Stress Score: 5 Summed Rest Score: 10 Summed Difference Score: 0 PERFUSION FINDINGS There is a medium sized , moderate intensity perfusion defect in the apical and anterior moyer with partial reversibility. FUNCTIONAL RESULTS (calculated via Gated SPECT) Stress Image LV EF (%): 82 Stress EDV (mL):90 TID: 1.19 Stress ESV (mL):16 FUNCTIONAL FINDINGS: There is normal left ventricular systolic function. IMPRESSIONS 1) There is a medium sized, partially reversible perfusion defect noted in the apical and anterior moyer. This could represent attenuation artifact or ischemia. Clinical correlation is required 2) LV systolic function is normal Lalo Eli MD (Electronically Signed) Final Date: 29 December 2019 17:05 S
--- NOTE | 2019-12-29 17:05 | CT_ITS ---
WS: [id number] CT head wo con* [id number] REASON FOR EXAM: headache,vomting, r/o SAH IV CONTRAST ADMINISTERED: Noncontrast. TOTAL EXAM DLP: 763.[address] scans at [facility] use at least one of these dose optimization techniques: automat ed exposure control; mA and/or kV adjustment per patient size (includes targeted exams where dose is matched to clinical indication); or iterative reconstruction. FINDINGS: No midline shift or other significant mass effect. No findings of intracranial hemorrhage, specifically no subarachnoid hemorrhage is identified. Tiny basal ganglia calcifications, 2 in the right one on the left. No associated brain parenchymal at tenuation change. No ventricular dilatation. Hemphill-white matter differentiation intact. No other evidence of cerebral edema. No focal abnormality of the posterior fossa. CT/CT head wo con* [id number] IMPRESSION: No acute intracranial abnormality identified, specifically no subarachnoid hemo rrhage and no findings of cerebral edema.
[2019-12-29] MEDS: ondansetron 2 mg/ML SDV 2 mL 8 MG IVP (17:27)
[2019-12-30] VITALS: BP 132/68; PULSE 80; RESP 17; TEMP 36.6; O2SAT 97
[2019-12-30] MEDS: sodium chloride 0.9% 1,000 ML 125 ML IV ×2 (00:48→08:55)
[2019-12-30 04:00] VITALS: BP 135/78; PULSE 84; RESP 17; TEMP 36.8; O2SAT 96
[2019-12-30 06:46] LABS: Basophils % 0.3 %; Eosinophils # 0.1 10^3/uL (0.0-0.8); Hematocrit 27.1 % (37.0-47.0); Hemoglobin 8.9 g/dL (11.5-15.3); Lymphocytes # 0.5 10^3/uL (0.8-4.8); Mean Corpuscular HGB Conc 32.8 g/dL (30.0-36.0); Mean Corpuscular Hemoglobin 29.6 pg (28.0-34.0); Mean Platelet Volume 9.9 fL (7.4-10.4); Monocytes # 0.2 10^3/uL (0.2-0.9); Monocytes % 7.8 %; Neutrophils % 71.6 %; Nucleated Red Blood Cells % 0 %; Platelet Count 109 10^3/cmm (130-400); Red Blood Count 3.01 10^6/uL (4.1-5.3); Red Cell Distribution Width 11.9 % (12.1-15.1); White Blood Count 2.9 10^3/uL (4.0-10.0)
[2019-12-30 07:05] LABS: Alanine Aminotransferase 24 U/L (0-33); Albumin Level 3.6 g/dL (3.5-5.2); Alkaline Phosphatase 74 IU/L (35-105); Anion Gap 16.4 (5-19); Aspartate Amino Transferase 22 U/L (0-32); Blood Urea Nitrogen 11 mg/dL (8-23); Carbon Dioxide 23 mmol/L (22-29); Chloride 102 mmol/L (98-107); Globulin 2.4 g/dL (1.3-4.6); Glomerular Filtration Rate 56.2 mL/min (90-130); Glucose 63 mg/dL (65-115); Magnesium 1.4 mg/dL (1.7-2.3); Osmolality Calculated 281 mOsm/kg (285-295); Phosphorus 3.2 mg/dL (2.5-4.5); Potassium 4.4 mmol/L (3.5-5.1); Sodium 137 mmol/L (136-145); Total Bilirubin 0.2 mg/dL (0.15-1.2)
[2019-12-30 07:18] VITALS: BP 118/77; PULSE 83; RESP 16; TEMP 36.6; O2SAT 96
[2019-12-30] MEDS: ondansetron 2 mg/ML SDV 2 mL 4 MG IVP (08:22)
[2019-12-30] MEDS: hydroxychloroquine 200 mg Tablet PO (08:55)
[2019-12-30] MEDS: heparin 5,000 unit/mL INJ 1 mL 5000 UNIT SUBCUT (08:56)
[2019-12-30] MEDS: buPROPion SR (12 HR) 150 mg Tablet PO (08:56)
--- NOTE | 2019-12-30 09:09 | DCPLANNER ---
Pg 2 of IM updated and reviewed with pt,. No questions, she hopes she is being d/c'd today.
[2019-12-30 11:24] VITALS: BP 145/77; PULSE 83; RESP 18; TEMP 36.6; O2SAT 98
--- NOTE | 2019-12-30 12:14 | P.PN_ITS ---
Vitals/I&O/Wt Last Vital Signs Temp 97.8 F 12/30/19 11:24 Pulse 83 12/30/19 11:24 Resp 18 12/30/19 11:24 BP 145/77 12/30/19 11:24 Pulse Ox 98 12/30/19 11:24 12/29/19 12/30/19 12/30/19 22:59 06:59 14:59 Intake Total 1420 / 2420 1000 / 1000 Output Total 800 / 2000 350 / 2350 600 / 600 Balance 620 / 420 -350 / 70 400 / 400 Weight last 48 hrs Weight 76.657 kg Weight 80.371 kg Data : 12/30/19 05:51 12/30/19 05:51 Coding Level of Care Code Acute Linux System Engineer for Karis Gomez
[2019-12-30 15:02] LABS: Troponin T (5th) Once 10 ng/L (0-10)
[2019-12-30 15:44] VITALS: BP 123/75; PULSE 87; RESP 18; TEMP 36.7; O2SAT 98
[2019-12-30 16:24] VITALS: BP 123/75; PULSE 87; RESP 18; TEMP 36.7; O2SAT 98
--- NOTE | 2019-12-30 23:21 | PM.DCS ---
Discharge Providers Date of Admission: 12/27/19 18:12 Date of Discharge: December 30, 2019 Attending Provider at Admission: Wyatt Cadet MD Attending Provider at Discharge: Faina Aaron MD Diagnoses at Discharge Discharge Diagnosis (1) STEFF (acute kidney injury): Status: Resolved (2) Systemic lupus erythematosus arthritis: Status: Acute (3) Hypotension: Status: Resolved (4) Fibromyalgia: Status: Resolved (5) Headache: Status: Resolved Qualifiers: Intractability: intractable Reason for Visit Reason for Visit: LOW BP Hospital Course Discharge Summary Summer Sanchez is a 64 year old female with PMH SLE,Fibromyalgis,peripheral neuropathy,came in with c/o pain while passing urine , few episodes of diarrhea along with intermittent lower abdominal pain. She was noted to have abormal labs by way of cr 4.2 , C.T abdomen and pelvis mild mural thickening of the distal transverse, descending, and rectosigmoid colon. Findings are consistent with mild nonspecific colitis. EKG showed SINUS RHYTHM with LEFT BUNDLE BRANCH BLOCK. She was hypotensive upon arrival in the ER.B/P : 76/57. Hospital course as below: (1) STEFF (acute kidney injury): STEFF V/S STEFF ON CKD cr improving to 1.4. urine output ~3L Stopped Lisinorpil and HCTZ, these were additionally discontinued on discharge Real U/S with Somewhat small kidneys with irregular contour and abundant sinus fibrolipomatosis. On CT abdomen, No renal calculi. No hydronephrosis. Steff likely related to ATN from hypotension vs volume loss, though patient reports only one episode of diarrhea, which has now resolved . Multiple episodes of vomiting during admission course which additionally resolved. Patient has an appt with medical technician in [place] in January (2) Systemic lupus erythematosus arthritis: Currently on HCQ 200 MG Q12 H DAILY. Continue same for now (3) Hypotension: She was hypotensive upon arrival in the ER.B/P : 76/57, unclear etiology, may be volume loss from diarrhea which has now resolved vs antihypertensive drugs. Pateint reports that this has been an ongoing problem now for the last 3 months or so Also reported 3 months of intermittent chest pain and GOLDSMITH with climbing stairs. Last stress test 7 years ago, WNL. Stress test perfromed on 12/28 to evalutee for underlying cardiac causes showed medium sized, partially reversible perfusion defect noted in the apical and anterior moyer. This could represent attenuation artifact or ischemia. Echocardiogram showed Normal left ventricular systolic function. No regional wall motion abnormalities. Left ventricular ejection fraction is estimated at 63 %. Grade I/IV diastolic dysfunction. Above findings were discussed with the patient. It was discussed with her that she may need angiogram to further evlaute for underlying CAD, however given that she was just recovering from an STEFF, it was decided not to pursue contrast studies at this time to avoid risk of CAIN since she was otherwise chest pain free, without evolving EKG changes and negative troponins. Echocardiogram with normal systolic and diatsolic function. Follow up was arranged with cardiology as an outpatient with Dr. Ramirez. EKG upon admission with LBBB, appears unchanged since 2016 (4) Fibromyalgia: Pain management with opiates and HCQ (5) Headache: Past h/o migraines+, however became intractable associated with nausea additionally. CT head perfromed, did not show any acute intracranial abnormalities. (6) Colitis as noted on CT: clinically this appears to be resolved. Diarrhea and abdominal pain resolved Her BP has stabilized at time of discharge, she feels overall improved Physical Exam Narrative: EXAM NARRATIVE: GEN: Awake, alert and oriented, no acute distress CVS: S1S@ N RS: CTA B/L except crackles over RUL Abd: Soft, nt/nd , bs+ MUCK FARMER: no focal neuro deficits Discharge Data Data Completed and Pending: Completed Studies During Hospitalization Category Date Time Status CT abdomen pelvis wo con [id number] Urge nt Cat Scan 12/27/19 18:[address] head wo con* [id number] Stat Cat Scan 12/29/19 17:05 Completed Sestamibi Stress Test Request Routi ne Exams 12/29/19 06:00 Draft NM shonna perf SPECT r/s* [id number] Routin e Nuc Med 12/29/19 17:03 Completed CV echo complete* [id number] Routine Ultrasound 12/28/19 11:59 Completed US renal BI* [id number] Routine Ultrasound 12/28/19 19:12 Completed Pending at discharge Category Date Time Status Sestamibi Stress Test Request Routi ne Exams 12/28/19 17:03 Stop Req Labs from last 24 hours 12/30/19 12/30/19 12/30/19 14:38 05:51 05:51 WBC 2.9 L RBC 3.01 L Hgb 8.9 L Hct 27.1 L MCV 90.0 MCH 29.6 MCHC 32.8 RDW 11.9 L Plt Count 109 L MPV 9.9 Neut % (Auto) 71.6 Lymph % (Auto) 18.0 [place] % (Auto) 7.8 Eos % (Auto) 2.0 Baso % (Auto) 0.3 Neut # (Auto) 2.10 Lymph # (Auto) 0.5 L [place] # (Auto) 0.2 Eos # (Auto) 0.1 Baso # (Auto) 0.0 Nucleated RBC % (a uto) 0 Nucleated RBCs # 0.0 Sodium 137 Potassium 4.4 Chloride 102 Carbon Dioxide 23 Anion Gap 16.4 BUN 11 Creatinine 1.0 H GFR Calculation 56.2 L Glucose 63 L Calculated Osmolal ity 281 L Calcium 9.0 Phosphorus 3.2 Magnesium 1.4 L Total Bilirubin 0.2 AST 22 ALT 24 Alkaline Phosphata se 74 Troponin T Gen 5 n g/L 10 Total Protein 6.0 L Albumin 3.6 Globulin 2.4 Vitals: Last Vital Signs Temp 98.1 F 12/30/19 16:24 Pulse 87 12/30/19 16:24 Resp 18 12/30/19 16:24 BP 123/75 12/30/19 16:24 Pulse Ox 98 12/30/19 16:24 Discharge Plan Discharge Patient Disposition: Home Condition: Stable Prescriptions: Continued hydroxychloroquine 200 mg tablet 200 mg PO BID RF: 0 pregabalin 75 mg capsule 75 mg PO DAILY RF: 0 diclofenac sodium 1 % gel 2 gm TOPICAL QID PRN (Reason: Pain) RF: 0 Wellbutrin SR 150 mg Tablet Sustained-Release 12 Hr 150 mg PO BID RF: 0 Discontinued hydrochlorothiazide 12.5 mg tablet 12.5 mg PO DAILY RF: 0 lisinopril 10 mg tablet 10 mg PO DAILY RF: 0 Discharge Orders: Discharge Order (Routine); Ordered 12/30/19 Ordered By: Faina Aaron Referrals: Emily Ramirez MD [Physician] - 4-7 days (abnormal stress test [facility] will call you with an appointment Wednesday. If you don't hear from them please call [phone]. You will need to be seen within one week.) Discharge Diet: Usual diet Discharge Activity: Resume usual activity Patient Instructions: Ondansetron (By mouth), Cardiac Stress Test (DC), Acute Kidney Injury (DC), Chest Pain Stoplight Discharge Attestations Time Spent in Discharge Care*: greater than 30 min Quality Metrics Clinical Quality Measures During this hospital stay, did patient experience: None Coding Level of Care Code Acute Business Transformation Manager for Chg Fwd Diagnoses STEFF (acute kidney injury) N17.9 Systemic lupus erythematosus arthritis M32.9 Hypotension I95.9 Fibromyalgia M79.7 Headache R51.9 Intractability: intractable
== END 2019-12-30 16:50 | disposition home or self-care (01) | DRG 314 ==
LOC: ER 18:35 → MEDSURG 19:58
PROVIDERS: Emergency Medicine; Admitting Provider Internal Medicine; Visit Provider Student in an Organized Health Care Education/Training Program
DX: I95.9 Hypotension, unspecified (principal); N17.0 Acute kidney failure with tubular necrosis; M32.19 Other organ or system involvement in systemic lupus erythematosus; M79.7 Fibromyalgia; E86.0 Dehydration; R51.9 Headache, unspecified; K52.9 Noninfective gastroenteritis and colitis, unspecified; I44.7 Left bundle-branch block, unspecified
CPT/HCPCS: 12345; 36415; 70450; 74176; 76770; 78452; 80053; 80061; 81003; 82570; 83036; 83605; 83690; 83735; 83880; 84100; 84156; 84300; 84443; 84484; 85014; 85025; 85045; 93005; 93017; 93306; 96372; 96375; 99284; A9500; J1644; J2405; J2785; J7030

== ENCOUNTER 2020-04-10 08:01 | Outpatient (CLI) | payer MEDICARE, MEDICAID, SELFPAY ==
--- NOTE | 2020-04-10 08:07 | US_ITS ---
WS: [id number] RENAL ULTRASOUND HISTORY: STAGE 3B CHRONIC KIDNEY DISEASE COMPARISON: 12/28/2019 TECHNIQUE: 2-D and color Doppler imaging of the kidney submitted. Right kidney: 9.2 cm x 5.1 cm x 4.6 cm. Normal echogenicity with no hydronephrosis or mass. Left kidney: 8.9 cm x 3.5 cm x 4.1 cm. Normal echogenicity with no hydronephrosis or mass. Aorta: Normal. Urinary Bladder: Minimally distended bladder. US/US renal BI* [id number] IMPRESSION: Normal renal ultrasound. No hydronephrosis or mass or cortical thinning.
== END 2020-04-10 08:02 | disposition home or self-care (01) ==
LOC: RAD 08:02
PROVIDERS: PCP Nurse Practitioner Family; Visit Provider Internal Medicine Nephrology
DX: N18.32 Chronic kidney disease, stage 3b (principal)
CPT/HCPCS: 76770

== ENCOUNTER 2020-07-16 15:20 | Outpatient (CLI) | payer MEDICARE, MEDICAID, SELFPAY ==
--- NOTE | 2020-07-16 15:23 | MM_ITS ---
WS: [id number] BILATERAL SCREENING DIGITAL MAMMOGRAM WITH CAD HISTORY: SCREENING COMPARISON: 11/09/2018 Bilateral CC and MLO views submitted. Computer aided detection analyzed. Breast composition: There are scattered areas of fibroglandular density. No suspicious masses, microc alcifications or architectural distortion. Benign stable calcifications in the RIGHT breast. MM/[place] [id number] IMPRESSION: BI-RADS: 2-Benign FOLLOW UP: 1 Year Follow-up
== END 2020-07-16 15:21 | disposition home or self-care (01) ==
PROVIDERS: PCP Nurse Practitioner Family; Visit Provider Nurse Practitioner Family
DX: Z12.31 Encounter for screening mammogram for malignant neoplasm of breast (principal)
CPT/HCPCS: 77067

== ENCOUNTER 2021-02-24 15:30 | Outpatient (CLI) | payer MEDICARE, MEDICAID, SELFPAY ==
--- NOTE | 2021-02-24 | US_ITS ---
WS: [id number] THYROID ULTRASOUND HISTORY: THYROID ATROPHY COMPARISON: None available. Right lobe: 1.4 cm x 1.7 cm x 3.5 cm (w x ap x l). Volume: 4.2 cm3. Normal size thyroid gland. Very slight heterogeneity. There are a few scattered, subcentimeter hypoec hoic nodules. No suspicious nodule or calcification. Left lobe: 1.2 cm x 1.6 cm x 3.0 cm (w x ap x l). Volume: 3.0 cm3. Low normal size gland. There are a few scattered nodules which are predominantly cysts or colloid cys t. No dominant solid mass. Isthmus: 0.3 cm. US/US thyroid [id number] IMPRESSION: 1. Very mild atrophy of the LEFT thyroid. 2. No dominant or suspicious solid nodules or calcifications. There are bilate ral but very small thyroid nodules.
== END 2021-02-24 15:31 | disposition home or self-care (01) ==
LOC: RAD 15:37
PROVIDERS: PCP Nurse Practitioner Family; Visit Provider Nurse Practitioner Family
DX: E03.4 Atrophy of thyroid (acquired) (principal)
CPT/HCPCS: 76536

== ENCOUNTER → 2021-04-28 11:07 | Outpatient (BNVA) | payer MEDICARE, MEDICAID, SELFPAY | PROVIDERS: PCP Nurse Practitioner Family; Referring Provider Nurse Practitioner Family; Visit Provider Nurse Practitioner Family | DX: R30.0 Dysuria (principal); N39.0 Urinary tract infection, site not specified | CPT/HCPCS: 81003; 87086 ==

== ENCOUNTER 2021-06-02 16:11 | Outpatient (RCR) | payer MEDICARE, SELFPAY | END 2021-06-21 23:59 | disposition home or self-care (01) | LOC: SPT 16:11 | PROVIDERS: PCP Nurse Practitioner Family; Referring Provider Nurse Practitioner Family; Visit Provider Nurse Practitioner Family | DX: M70.921 Unspecified soft tissue disorder related to use, overuse and pressure, right upper arm (principal); M79.601 Pain in right arm | CPT/HCPCS: 97110; 97161 ==

== ENCOUNTER → 2021-06-10 13:18 | Outpatient (BNVA) | payer MEDICARE, MEDICAID, SELFPAY | PROVIDERS: PCP Nurse Practitioner Family; Visit Provider Urology | DX: N39.0 Urinary tract infection, site not specified (principal); N39.3 Stress incontinence (female) (male) | CPT/HCPCS: 81003 ==

== ENCOUNTER → 2021-07-01 07:47 | Outpatient (BNVA) | payer MEDICARE, MEDICAID, SELFPAY | PROVIDERS: PCP Nurse Practitioner Family; Visit Provider Internal Medicine | DX: E04.2 Nontoxic multinodular goiter (principal); R93.89 Abnormal findings on diagnostic imaging of other specified body structures; R53.83 Other fatigue; M32.9 Systemic lupus erythematosus, unspecified; D64.9 Anemia, unspecified; G47.33 Obstructive sleep apnea (adult) (pediatric) | CPT/HCPCS: 36415; 83516; 84439; 84443; 86376; 86800; 99204 ==

== ENCOUNTER 2021-07-14 11:38 | Outpatient (CLI) | payer MEDICARE, MEDICAID, SELFPAY ==
--- NOTE | 2021-07-14 11:53 | MR_ITS ---
WS: [email or web address] MRI HEAD WITHOUT CONTRAST TECHNIQUE: Sagittal T1, T2 axial, T2 axial FLAIR, axial and coronal T1 images, axial susceptibility w eighted imaging, axial diffusion weighted images, and coronal T2 images were obtained. CLINICAL INFORMATION: MIGRAINE HEADACHES COMPARISON: CT December 29, 2019 FINDINGS: No evidence of restricted diffusion to suggest acute ischemia. Ventricular system and basal cisterns are patent. Moderate small vessel changes. Moderate parenchymal volume loss. Small vessel changes in the roxana. Normal posterior fossa. Normal vascular flow voids at the skull base. No extra-axial fluid collections. No evidence of mass or mass effect. Paranasal sinuses are well aerated. Mastoid air cell s are well aerated. No hemosiderin on the susceptibly weighted images. Normal optic chiasm and pituitary infundibulum. Mi ld symmetric atrophy temporal lobes and hippocampal formations. MR/MR head wo con* [id number] IMPRESSION: 1. No evidence of restricted diffusion to suggest acute ischemia. 2. Moderate small vessel changes. Mild parenchymal volume loss. Small vessel c hanges in the roxana. 3. Mild mucosal thickening in the ethmoid air cells. 4. No hemosiderin on susceptibly weighted images. 5. Mild symmetric atrophy temporal lobes and hippocampal formations.
== END 2021-07-14 11:39 | disposition home or self-care (01) ==
LOC: RAD 11:40
PROVIDERS: PCP Nurse Practitioner Family; Visit Provider Nurse Practitioner Family
DX: G43.909 Migraine, unspecified, not intractable, without status migrainosus (principal); G31.89 Other specified degenerative diseases of nervous system
CPT/HCPCS: 70551

== ENCOUNTER → 2021-09-15 10:52 | Outpatient (BNVA) | payer MEDICARE, MEDICAID, SELFPAY | PROVIDERS: PCP Nurse Practitioner Family; Visit Provider Nurse Practitioner Family | DX: N39.0 Urinary tract infection, site not specified (principal); N39.46 Mixed incontinence | CPT/HCPCS: 81003; 99213 ==

== ENCOUNTER → 2021-11-05 10:27 | Outpatient (BNVA) | payer MEDICARE, MEDICAID, SELFPAY | PROVIDERS: PCP Nurse Practitioner Family; Visit Provider Nurse Practitioner Family | DX: N39.0 Urinary tract infection, site not specified (principal); N39.46 Mixed incontinence | CPT/HCPCS: 51798; 99213 ==

== ENCOUNTER → 2021-11-20 12:29 | Outpatient (BNVA) | payer MEDICARE, MEDICAID, SELFPAY | PROVIDERS: PCP Nurse Practitioner Family; Visit Provider Nurse Practitioner Family | DX: N39.0 Urinary tract infection, site not specified (principal); N39.46 Mixed incontinence | CPT/HCPCS: 81003 ==

== ENCOUNTER 2021-12-11 11:39 | Outpatient (CLI) | payer MEDICARE, MEDICAID, SELFPAY ==
--- NOTE | 2021-12-11 11:57 | MM_ITS ---
WS: [email or web address] Bilateral screening 3D tomosynthesis digital mammogram, 12/11/2021 Clinical Data: SCREEN Comparison: 07/16/2020, 11/09/2018, 10/12/2017, 12/03/2016, 10/27/2016, 10/07/2016, 09/29/2011. Findings: The breast parenchymal pattern shows fat replacement. No spiculated masses or clustered calcificatio ns are seen. There are no secondary signs of carcinoma. There is a biopsy clip in the central portion of the right breast. MM/[place] [id number] Impression: 1. Negative bilateral mammogram unchanged. 2. Recommend annual screening mammograms. BIRADS: 1-Negative FOLLOW UP: 1 Year Follow-up The CAD shipping checker was used.
== END 2021-12-11 11:40 | disposition home or self-care (01) ==
LOC: RAD 11:41
PROVIDERS: PCP Nurse Practitioner Family; Visit Provider Nurse Practitioner Family
DX: Z12.31 Encounter for screening mammogram for malignant neoplasm of breast (principal)
CPT/HCPCS: 77063; 77067

== ENCOUNTER → 2022-03-05 09:19 | Outpatient (BNVA) | payer MEDICARE, MEDICAID, SELFPAY | PROVIDERS: PCP Nurse Practitioner Family; Visit Provider Urology | DX: N30.20 Other chronic cystitis without hematuria (principal); N39.46 Mixed incontinence | CPT/HCPCS: 51798; 99213 ==

== ENCOUNTER → 2022-03-23 09:06 | Outpatient (BNVA) | payer MEDICARE, MEDICAID, SELFPAY | PROVIDERS: PCP Nurse Practitioner Family; Visit Provider Internal Medicine | DX: M32.9 Systemic lupus erythematosus, unspecified (principal); E04.2 Nontoxic multinodular goiter; R93.89 Abnormal findings on diagnostic imaging of other specified body structures; R53.83 Other fatigue; G47.33 Obstructive sleep apnea (adult) (pediatric) | CPT/HCPCS: 99214 ==

== ENCOUNTER 2022-04-10 16:20 | Outpatient (CLI) | payer MEDICARE, MEDICAID, SELFPAY ==
--- NOTE | 2022-04-10 16:00 | US_ITS ---
WS: [email or web address] ULTRASOUND THYROID TECHNIQUE: Ultrasound of the thyroid. CLINICAL INFORMATION: thyroid nodules COMPARISON: Ultrasound February 24, 2021 FINDINGS: Thyroid: A few tiny incidental cystic and colloid cysts bilaterally. Stable complex cystic nodule RIG HT inferior thyroid measuring 4.3 x 4.3 mm Right thyroid lobe: 3.9 cm x 1.4 cm x 1.9 cm Left thyroid lobe: 2.7 cm x 1.2 cm x 1.4 cm. Isthmus: 0.3 mm. Cervical lymphadenopathy: None. US/US thyroid [id number] IMPRESSION: No changes compared to February 24, 2021 1. Slightly atrophic LEFT thyroid lobe unchanged. Normal RIGHT thyroid lobe. 2. Complex cystic tiny nodule RIGHT inferior thyroid is unchanged in appearanc e measuring 4.3 x 4.2 mm 3. A few additional scattered tiny cystic lesions and colloid cysts. 4. No suspicious lesions to target for biopsy.
== END 2022-04-10 16:21 | disposition home or self-care (01) ==
LOC: RAD 16:23
PROVIDERS: PCP Nurse Practitioner Family; Visit Provider Internal Medicine
DX: E04.2 Nontoxic multinodular goiter (principal); E03.4 Atrophy of thyroid (acquired)
CPT/HCPCS: 76536

== ENCOUNTER → 2022-06-03 12:48 | Outpatient (BNVA) | payer MEDICARE, MEDICAID, SELFPAY | PROVIDERS: PCP Nurse Practitioner Family; Visit Provider Urology | DX: N30.20 Other chronic cystitis without hematuria (principal); R33.9 Retention of urine, unspecified | CPT/HCPCS: 81003; 99213 ==

== ENCOUNTER → 2022-11-06 18:11 | Outpatient (BNVA) | payer OTHER, MEDICAID, SELFPAY | PROVIDERS: PCP Nurse Practitioner Family; Visit Provider Emergency Medicine | DX: R05.9 Cough, unspecified (principal); U07.1 COVID-19 | CPT/HCPCS: 87426 ==

== ENCOUNTER → 2022-12-19 15:56 | Outpatient (BNVA) | payer OTHER, MEDICAID, SELFPAY | PROVIDERS: PCP Nurse Practitioner Family; Visit Provider Family Medicine | DX: R50.9 Fever, unspecified (principal); J01.90 Acute sinusitis, unspecified | CPT/HCPCS: 87400; 87426 ==

== ENCOUNTER → 2022-12-28 15:06 | Outpatient (BNVA) | payer OTHER, MEDICAID, SELFPAY | PROVIDERS: PCP Nurse Practitioner Family; Visit Provider Nurse Practitioner Family | DX: L57.0 Actinic keratosis (principal); L82.1 Other seborrheic keratosis; D22.5 Melanocytic nevi of trunk; L57.8 Other skin changes due to chronic exposure to nonionizing radiation; L81.4 Other melanin hyperpigmentation | CPT/HCPCS: 17000; 99213 ==

== ENCOUNTER 2022-12-29 16:39 | Outpatient (CLI) | payer OTHER, MEDICAID, SELFPAY ==
--- NOTE | 2022-12-29 16:47 | XR_ITS ---
WS: [email or web address] Chest 2 views, 12/29/2022 Clinical Data: Cough Comparison: PA chest, 07/22/2015 Findings: No nodules, masses or effusions are seen. The heart is normal. The pulmonary vascularity is not increased. No pneumonia or pneumothorax is seen. There are calcified granulomas in both kaiser and the right tracheobronchial junction. There are clips in the right upper quadrant from a cholecystect lowell. Impression: Old granulomatous disease.
--- NOTE | 2022-12-29 16:47 | XR_ITS ---
WS: [email or web address] Right knee, 3 views, 12/29/2022 Clinical Data: Right knee pain Comparison: Right knee, 08/17/2019. Findings: No fractures or dislocations are seen. There is medial and lateral joint space narrowing with osteoph ytes of the medial and lateral tibial plateau and medial and lateral femoral condyle. The patella daniel ws irregularity with spurring. The soft tissues are unremarkable. Impression: Moderate osteoarthritis of the right knee. Kellgren-Marc Classification: grade 3 (moderate): moderate multiple osteophytes, definite narrowi ng of joint space and some sclerosis and possible deformity of bone ends
== END 2022-12-29 16:40 | disposition home or self-care (01) ==
PROVIDERS: PCP Nurse Practitioner Family; Visit Provider Nurse Practitioner Family
DX: M17.11 Unilateral primary osteoarthritis, right knee (principal); M25.561 Pain in right knee; R05.8 Other specified cough; M25.761 Osteophyte, right knee; D71 Functional disorders of polymorphonuclear neutrophils
CPT/HCPCS: 71046; 73562

== ENCOUNTER 2023-01-06 15:49 | Outpatient (CLI) | payer OTHER, MEDICAID, SELFPAY ==
--- NOTE | 2023-01-06 16:44 | XR_ITS ---
WS: [email or web address] Exam: XR chest 2V* [id number] Date/Time of Exam: 01/06/2023 4:50 PM Reason For Exam: COUGH Comparison 12/29/2022. Findings: The lungs are clear and fully expanded. Costophrenic angles are sharp. No infiltrates. Bronchovascula r relief appears normal. Cardiac silhouette is unremarkable. Bony elements are intact. IMPRESSION: Unremarkable chest radiograph.
[2023-01-06 16:53] LABS: Basophils % 0.5 %; Eosinophils # 0.1 10^3/uL (0.0-0.8); Eosinophils % 1.3 %; Hematocrit 38.1 % (36-47); Lymphocytes # 1.3 10^3/uL (0.8-4.8); Lymphocytes % 23.8 %; Mean Corpuscular HGB Conc 34.1 g/dL (30-55); Mean Corpuscular Hemoglobin 30.4 pg (27-33); Mean Platelet Volume 8.6 fL (7.4-10.4); Monocytes # 0.6 10^3/uL (0.2-0.9); Monocytes % 10.3 %; Neutrophils # 3.51 10^3/uL (1.8-7.7); Neutrophils % 63.4 %; Nucleated Red Blood Cells % 0 %; Platelet Count 193 10^3/cmm (157-399); Red Blood Count 4.28 10^6/uL (3.85-5.65); Red Cell Distribution Width 12.2 % (12.1-15.1); White Blood Count 5.54 10^3/uL (3.29-11.43)
[2023-01-06 17:30] LABS: Alanine Aminotransferase 32 U/L (0-33); Albumin Level 4.4 g/dL (3.5-5.2); Alkaline Phosphatase 87 U/L (35-105); Anion Gap 15.8 (5-19); Aspartate Amino Transferase 28 U/L (0-32); Blood Urea Nitrogen 29 mg/dL (8-23); Calcium 9.3 mg/dL (8.5-10.5); Carbon Dioxide 22 mmol/L (22-29); Chloride 104 mmol/L (98-107); Globulin 2.5 g/dL (1.3-4.6); Glomerular Filtration Rate 37.7 mL/min (90-130); Glucose 81 mg/dL (65-115); Osmolality Calculated 291 mOsm/kg (285-295); Potassium 3.8 mmol/L (3.5-5.1); Sodium 138 mmol/L (136-145); Total Bilirubin 0.3 mg/dL (0.15-1.2); Total Protein 6.9 g/dL (6.6-8.7)
[2023-01-06 18:46] LABS: Adenovirus Not Detected (NOT DETECT); Chlamydia Pneumoniae Not Detected (NOT DETECT); Coronavirus 229E,HKU1,NL63,OC4 Not Detected (NOT DETECT); Human Metapneumovirus Not Detected (NOT DETECT); Human Rhinovirus/Enterovirus Not Detected (NOT DETECT); Influenza A Not Detected (NOT DETECT); Influenza A H1 Not Detected (NOT DETECT); Influenza A H1-2009 Not Detected (NOT DETECT); Influenza A H3 Not Detected (NOT DETECT); Influenza B Not Detected (NOT DETECT); Mycoplasma Pneumoniae Not Detected (NOT DETECT); Parainfluenza Virus Type 1 Not Detected (NOT DETECT); Parainfluenza Virus Type 2 Not Detected (NOT DETECT); Parainfluenza Virus Type 3 Not Detected (NOT DETECT); Parainfluenza Virus Type 4 Detected (NOT DETECT); Respiratory Syncytial Virus A Not Detected (NOT DETECT); Respiratory Syncytial Virus B Not Detected (NOT DETECT); SARS-COV-2 Not Detected (NOT DETECT)
== END 2023-01-06 15:50 | disposition home or self-care (01) ==
PROVIDERS: PCP Nurse Practitioner Family; Visit Provider Nurse Practitioner Family
DX: R05.8 Other specified cough (principal)
CPT/HCPCS: 36415; 71046; 80053; 85025; 87486; 87581; 87633

== ENCOUNTER 2023-09-20 08:15 | Outpatient (CLI) | payer MEDICARE, SELFPAY ==
--- NOTE | 2023-09-20 08:21 | USCV_ITS ---
Summer Sanchez Age: 68 Gender: F : 1955 Exam Date: 09/20/2023 08:42 Ordering Phys: Altagracia Wagner Technologist: CT Exam Location: [facility] [place] Indication: dhaliwal BP: 132 / 64 HR: 73 Rhythm: Sinus Technical Quality: Adequate MEASUREMENTS (Male / Female) Normal Values 2D ECHO LVOT Diameter 2.1 cm LV Ejection Fraction MOD 4C 51.6 % LV Ejection Fraction MOD 2C 65.0 % LV Ejection Fraction 2C AL 67.6 % LA Diameter 3.0 cm RA Systolic Volume 4C AL 30.0 ml RA Systolic Volume 4C MOD 29.1 ml LA Sys Volume AL 50.1 cm cubed LA Sys Volume Index AL 27.3 cm cubed/m squared Aorta at Sinotubular Diameter 2.5 cm IVC Diameter 1.7 cm M-MODE LA Ao Ratio MM 1.1 AV Cusp Separation MM 2.0 cm DOPPLER AV Peak Velocity 153.8 cm/s LVOT Peak Velocity 104.1 cm/s AV Area Cont Eq vti 2.8 cm squared AV Area Cont Eq pk 2.3 cm squared MV Peak Velocity 110.8 cm/s MV Area PHT 3.8 cm squared Mitral E to A Ratio 0.8 TV Peak Velocity 145.0 cm/s TR Peak Velocity 192.1 cm/s TR Peak Gradient 14.8 mmHg TV Peak E Velocity 91.2 cm/s Right Atrial Pressure 3.0 mmHg Pulmonary Artery Systolic Pressu 17.8 mmHg PV Peak Velocity 126.6 cm/s FINDINGS Left Ventricle Diffuse hypokinesia of left ventricle with an ejection fraction of 45%.Grade I/IV diastolic dysfunction (abnormal relaxation filling pattern), normal to mildly elevated filling pressures. Right Ventricle Normal right ventricular size and systolic function. Right Atrium Normal right atrial size. Left Atrium Normal left atrial size. Mitral Valve Thickened mitral valve. Mild mitral annular calcification. Mild mitral valve regurgitation. Aortic Valve Thickened aortic valve. Tricuspid Valve Trace tricuspid valve regurgitation. Pulmonic Valve No gross abnormalities noted Pericardium No pericardial effusion. Aorta Normal aorta. IVC Normal inferior vena cava. CONCLUSIONS Diffuse hypokinesia of left ventricle with an ejection fraction of 45%.Grade I/IV diastolic dysfunction (abnormal relaxation filling pattern), normal to mildly elevated filling pressures. Thickened mitral valve. Mild mitral annular calcification. Mild mitral valve regurgitation. Thickened aortic valve. Trace tricuspid valve regurgitation. There is no pericardial effusion. There are no intracardiac masses. Compared to study from 12/28/2019, there may not be a significant change Dr Josafat Pereira MD FAC (Electronically Signed) Final Date: 20 September 2023 21:04 S
== END 2023-09-20 08:16 | disposition home or self-care (01) ==
LOC: RAD 08:15
PROVIDERS: PCP Nurse Practitioner Family; Visit Provider Nurse Practitioner Family
DX: I34.89 Other nonrheumatic mitral valve disorders (principal); I34.0 Nonrheumatic mitral (valve) insufficiency; I35.8 Other nonrheumatic aortic valve disorders; I10 Essential (primary) hypertension; R06.09 Other forms of dyspnea; R60.9 Edema, unspecified
CPT/HCPCS: 93306

== ENCOUNTER 2023-12-28 11:05 | Outpatient (CLI) | payer MEDICARE, SELFPAY ==
--- NOTE | 2023-12-28 11:10 | MM_ITS ---
WS: [email or web address] DIAGNOSTIC BILATERAL DIGITAL BREAST TOMOSYNTHESIS MAMMOGRAPHY WITH CAD LEFT breast ultrasound, limited HISTORY: LEFT BREAST LUMP, pain. COMPARISON: 12/11/2021, 07/16/2020 TECHNIQUE: Bilateral craniocaudad, mediolateral oblique, and mediolateral views are submitted with to mosynthesis and SM. Spot compression LEFT CC. Computer aided detection utilized. Breast composition: The breasts are almost entirely fatty. Benign calcifications in the central RIGHT breast. There is no mass in the central LEFT breast at the area of pain. There is no distortion. No nipple retraction or skin thickening. LEFT breast ultrasound, limited. Ultrasound directed to the area of pain. Area of pain is posterior to the LEFT nipple. There is no ma ss or shadowing. No skin thickening. MM/MM diag BI tomosynthesis [id number] IMPRESSION: BI-RADS: 2 - Benign. FOLLOW UP: 1 Year Follow-up
== END 2023-12-28 11:06 | disposition home or self-care (01) ==
LOC: RAD 11:06
PROVIDERS: PCP Nurse Practitioner Family; Visit Provider Nurse Practitioner Family
DX: N63.42 Unspecified lump in left breast, subareolar (principal); R92.313 Mammographic fatty tissue density, bilateral breasts; R92.1 Mammographic calcification found on diagnostic imaging of breast
CPT/HCPCS: 76642; 77062; G0279

== ENCOUNTER → 2024-02-01 10:25 | Outpatient (BNVA) | payer MEDICARE, SELFPAY | PROVIDERS: PCP Nurse Practitioner Family; Visit Provider Nurse Practitioner Family | DX: L91.8 Other hypertrophic disorders of the skin (principal); D36.12 Benign neoplasm of peripheral nerves and autonomic nervous system, upper limb, including shoulder; D22.5 Melanocytic nevi of trunk; L82.1 Other seborrheic keratosis; L57.8 Other skin changes due to chronic exposure to nonionizing radiation; L81.4 Other melanin hyperpigmentation; L57.0 Actinic keratosis | CPT/HCPCS: 17000; 99213 ==

== ENCOUNTER 2024-07-21 16:59 | Outpatient (CLI) | payer MEDICARE, SELFPAY ==
[2024-07-21 17:57] LABS: Creatine Phosphokinase 476 U/L (26-192)
== END 2024-07-21 17:00 | disposition home or self-care (01) ==
LOC: LAB 17:05
PROVIDERS: PCP Nurse Practitioner Family; Visit Provider Internal Medicine
DX: M32.9 Systemic lupus erythematosus, unspecified (principal)
CPT/HCPCS: 36415; 82550; 84182; 86235

== ENCOUNTER 2024-08-02 10:27 | Outpatient (CLI) | payer MEDICARE, SELFPAY ==
--- NOTE | 2024-08-02 10:44 | XR_ITS ---
WS: [email or web address] KUB, AP view, 08/02/2024 Clinical Data: ABDOMINAL DISCOMFORT/FLANK PAIN Comparison: None. Findings: No abnormal intraabdominal masses or calcifications are seen. There is no dilatated small bowel or evidence of obstruction. There is fecal material throughout the colon. There is degenerative change of the lumbar spine. There are right upper quadrant cholecystectomy clips. XR/XR KUB [id number] Impression: Fecal material in the colon.
== END 2024-08-02 10:28 | disposition home or self-care (01) ==
PROVIDERS: PCP Nurse Practitioner Family; Visit Provider Nurse Practitioner Family
DX: K59.00 Constipation, unspecified (principal)
CPT/HCPCS: 74018

== ENCOUNTER 2024-08-23 13:35 | Outpatient (CLI) | payer MEDICARE, SELFPAY ==
[2024-08-23 14:57] LABS: Thyroid Stimulating Hormone 0.96 uIU/mL (0.27-4.20)
== END 2024-08-23 13:36 | disposition home or self-care (01) ==
PROVIDERS: PCP Nurse Practitioner Family; Visit Provider Internal Medicine
DX: M32.9 Systemic lupus erythematosus, unspecified (principal); M79.7 Fibromyalgia; Z79.899 Other long term (current) drug therapy
CPT/HCPCS: 36415; 82550; 84182; 84443; 86235

== ENCOUNTER 2024-09-25 09:38 | Outpatient (CLI) | payer MEDICARE, SELFPAY | END 2024-09-25 09:39 | disposition home or self-care (01) | PROVIDERS: PCP Nurse Practitioner Family; Visit Provider Internal Medicine | DX: M32.9 Systemic lupus erythematosus, unspecified (principal) | CPT/HCPCS: 36415; 82550 ==

== ENCOUNTER 2024-10-19 14:52 | Outpatient (CLI) | payer MEDICARE, SELFPAY ==
[2024-10-19 15:54] LABS: Hematocrit 35.2 % (36-47); Hemoglobin 11.70 g/dL (11.27-16.99); Mean Corpuscular HGB Conc 33.2 g/dL (30-55); Mean Corpuscular Hemoglobin 29.4 pg (27-33); Mean Corpuscular Volume 88.4 fl (85-98); Nucleated Red Blood Cells % 0 %; Platelet Count 225 10^3/cmm (157-399); Red Blood Count 3.98 10^6/uL (3.85-5.65); White Blood Count 5.27 10^3/uL (3.29-11.43)
[2024-10-19 16:12] LABS: Alanine Aminotransferase 39 U/L (0-33); Albumin Level 4.2 g/dL (3.5-5.2); Alkaline Phosphatase 78 U/L (35-105); Aspartate Amino Transferase 36 U/L (0-32); Globulin 2.2 g/dL (1.3-4.6); Total Protein 6.4 g/dL (6.6-8.7)
== END 2024-10-19 14:53 | disposition home or self-care (01) ==
LOC: LAB 14:53
PROVIDERS: PCP Nurse Practitioner Family; Visit Provider Internal Medicine
DX: M32.9 Systemic lupus erythematosus, unspecified (principal)
CPT/HCPCS: 36415; 80076; 82550; 85025; 86160

== ENCOUNTER 2024-11-15 10:06 | Outpatient (CLI) | payer MEDICARE, SELFPAY ==
[2024-11-15 11:52] LABS: Hematocrit 34.6 % (36-47); Hemoglobin 11.30 g/dL (11.27-16.99); Mean Corpuscular HGB Conc 32.7 g/dL (30-55); Mean Corpuscular Hemoglobin 30.4 pg (27-33); Mean Corpuscular Volume 93.0 fl (85-98); Nucleated Red Blood Cells % 0 %; Platelet Count 231 10^3/cmm (157-399); Red Blood Count 3.72 10^6/uL (3.85-5.65); White Blood Count 4.81 10^3/uL (3.29-11.43)
[2024-11-15 12:19] LABS: Alanine Aminotransferase 25 U/L (0-33)
== END 2024-11-15 10:07 | disposition home or self-care (01) ==
LOC: LAB 10:10
PROVIDERS: PCP Nurse Practitioner Family; Visit Provider Internal Medicine
DX: M32.9 Systemic lupus erythematosus, unspecified (principal)
CPT/HCPCS: 36415; 82550; 84460; 85025; 86160

== ENCOUNTER 2024-11-27 13:48 | Outpatient (CLI) | payer MEDICARE, SELFPAY ==
--- NOTE | 2024-11-27 13:59 | XR_ITS ---
WS: [email or web address] Chest 2 views, 11/27/2024 Clinical Data: ACUTE URI Comparison: Two-view chest, 01/06/2023 Findings: No nodules, masses or effusions are seen. The heart is normal. The pulmonary vascularity is not increased. No pneumonia or pneumothorax is seen. There is a calcified granuloma at the right tracheobronchial junction. The aortic arch and descending thoracic aorta show mild tortuosity. There are cholecystectomy clips in the right upper quadrant. XR/XR chest 2V* [id number] Impression: Old granulomatous disease and atherosclerosis.
[2024-11-27 16:08] LABS: Coronavirus 229E,HKU1,NL63,OC4 Not Detected (NOT DETECT); Parainfluenza Virus Type 1 Not Detected (NOT DETECT); Parainfluenza Virus Type 2 Not Detected (NOT DETECT); Parainfluenza Virus Type 3 Not Detected (NOT DETECT); Parainfluenza Virus Type 4 Not Detected (NOT DETECT); SARS-COV-2 Not Detected (NOT DETECT)
== END 2024-11-27 13:49 | disposition home or self-care (01) ==
PROVIDERS: PCP Nurse Practitioner Family; Visit Provider Nurse Practitioner Family
DX: J06.9 Acute upper respiratory infection, unspecified (principal); J84.10 Pulmonary fibrosis, unspecified; I77.810 Thoracic aortic ectasia; Z90.49 Acquired absence of other specified parts of digestive tract; L92.9 Granulomatous disorder of the skin and subcutaneous tissue, unspecified; I70.90 Unspecified atherosclerosis
CPT/HCPCS: 71046; 87486; 87581; 87633

== ENCOUNTER 2024-12-21 10:18 | Outpatient (CLI) | payer MEDICARE, SELFPAY ==
[2024-12-21 10:47] LABS: Hematocrit 34.8 % (36-47); Hemoglobin 11.10 g/dL (11.27-16.99); Mean Corpuscular HGB Conc 31.9 g/dL (30-55); Mean Corpuscular Hemoglobin 29.4 pg (27-33); Mean Corpuscular Volume 92.1 fl (85-98); Nucleated Red Blood Cells % 0 %; Platelet Count 189 10^3/cmm (157-399); Red Blood Count 3.78 10^6/uL (3.85-5.65); White Blood Count 4.95 10^3/uL (3.29-11.43)
[2024-12-21 11:10] LABS: Alanine Aminotransferase 35 U/L (0-33)
== END 2024-12-21 10:19 | disposition home or self-care (01) ==
LOC: LAB 10:19
PROVIDERS: PCP Nurse Practitioner Family; Visit Provider Internal Medicine
DX: M32.9 Systemic lupus erythematosus, unspecified (principal); Z79.899 Other long term (current) drug therapy
CPT/HCPCS: 36415; 82550; 84460; 85025

== ENCOUNTER 2025-01-29 12:07 | Outpatient (CLI) | payer MEDICARE, SELFPAY ==
[2025-01-29 12:45] LABS: Hematocrit 39.3 % (36-47); Hemoglobin 12.50 g/dL (11.27-16.99); Mean Corpuscular HGB Conc 31.8 g/dL (30-55); Mean Corpuscular Hemoglobin 29.2 pg (27-33); Mean Corpuscular Volume 91.8 fl (85-98); Nucleated Red Blood Cells % 0 %; Platelet Count 230 10^3/cmm (157-399); Red Blood Count 4.28 10^6/uL (3.85-5.65); White Blood Count 6.23 10^3/uL (3.29-11.43)
[2025-01-29 13:17] LABS: Alanine Aminotransferase 28 U/L (0-33)
== END 2025-01-29 12:08 | disposition home or self-care (01) ==
PROVIDERS: PCP Nurse Practitioner Family; Visit Provider Internal Medicine
DX: M32.9 Systemic lupus erythematosus, unspecified (principal); Z79.899 Other long term (current) drug therapy
CPT/HCPCS: 36415; 82550; 84460; 85025